=== PATIENT | female | born 1935 | race Caucasian/White ===

== ENCOUNTER → 2022-02-09 | Outpatient (CLI) | payer MEDICARE ==
[~2022-02-09] VITALS: Ht 152.4 cm; Wt 50.3 kg
[~2022-02-09] MED LIST: REGADENOSON 0.4 MG/5 ML PF SYG IVP SCH
== END | disposition home or self-care (01) ==
LOC: SHCH 07:43
PROVIDERS: ATTEND Internal Medicine Cardiovascular Disease
DX: R07.9 Chest pain, unspecified (principal); R93.1 Abnormal findings on diagnostic imaging of heart and coronary circulation
CPT/HCPCS: 78452; 96374; 93017; J2785; A9500 ×2

== ENCOUNTER → 2024-07-27 | Outpatient (CLI) | payer MEDICARE ==
--- NOTE | 2024-07-27 15:48 | HMCIMG ---
Exam Type: HAND 2+VWS LT LIMITED History: PAIN IN LEFT HAND Comparison: none Findings: The examination shows degenerative changes with narrowing of the interphalangeal joint spaces, with subchondral sclerosis. No fractures or dislocations are seen. There are no radiopaque foreign bodies. There are no areas of bone destruction. Impression: Osteoarthritis of the hand.
== END | disposition home or self-care (01) ==
LOC: RAH 12:52
PROVIDERS: ATTEND Internal Medicine
DX: M19.042 Primary osteoarthritis, left hand (principal); M79.642 Pain in left hand
CPT/HCPCS: 73120

== ENCOUNTER → 2024-08-31 | Outpatient (CLI) | payer MEDICARE ==
--- NOTE | 2024-08-31 11:40 | HMCIMG ---
Superficial ultrasound right neck Clinical Information: Swelling Comparison: None Findings: No fluid collections or masses are seen. Significantly, there is no evidence of hematoma. No increased fluid throughout the visualized tissue planes is identified. No lymphadenopathy is identified. Impression: No evidence of hematoma or fluid collections or other abnormalities.
== END | disposition home or self-care (01) ==
LOC: RAH 10:36
PROVIDERS: ATTEND Internal Medicine
DX: R22.1 Localized swelling, mass and lump, neck (principal); M54.2 Cervicalgia
CPT/HCPCS: 76536

== ENCOUNTER → 2025-06-23 | Outpatient (CLI) | payer MEDICARE ==
--- NOTE | 2025-06-24 00:11 | HMCIMG ---
EXAMINATION: MRI of the Left Hand without Contrast CLINICAL INDICATION: Other synovitis and tenosynovitis of the left hand. TECHNIQUE: Multiplanar, multisequence MRI of the left hand performed without intravenous contrast. COMPARISON: Prior left hand radiograph dated July 27, 2024. FINDINGS: Distal Radioulnar Joint (DRUJ): There is posterior subluxation of the ulna relative to the radius. A partial-thickness tear of the anterior capsule of the distal radioulnar joint is present with associated joint effusion. The DRUJ instability corresponds to Atzei Class 2 instability pattern (ulnar-sided TFCC injury with DRUJ subluxation). Triangular Fibrocartilage Complex (TFCC): There is a full-thickness tear of the foveal insertion of the TFCC disc proper, consistent with a David Class 1B lesion (traumatic ulnar-sided TFCC tear involving the foveal attachment), associated with DRUJ instability. Tendons and Tendon Sheaths: Tenosynovial fluid distention is present involving the extensor carpi radialis longus and extensor carpi radialis brevis tendon sheaths (series 4, image 3/42). Similar involvement of the flexor carpi radialis and flexor pollicis longus tendon sheaths is seen. Findings are consistent with Grade 2 tenosynovitis (moderate sheath fluid with synovial thickening, without tendon disruption). Index Finger: Diffuse bone marrow edema involves the metacarpal, proximal, middle, and terminal phalanges of the index finger, with associated subcutaneous edema. Flexor and extensor tendon slips are intact. The pattern is compatible with osteitis/reactive marrow edema, without features of fracture or tendon injury. Ring Finger: There is synovial thickening involving the metacarpophalangeal, proximal interphalangeal, and distal interphalangeal joints. Associated deformities include mild flexion deformity of the distal interphalangeal joint and extension deformity of the proximal interphalangeal joint, suggesting chronic inflammatory arthropathy with early deforming changes (Araya grade 23 appearance). Remaining Digits: The remainder of the fingers demonstrate normal bone marrow signal, preserved joint spaces, and intact tendons. Osseous Structures: No fracture, cortical destruction, or erosive changes are identified. Soft Tissues: Diffuse periarticular and subcutaneous edema is present without focal abscess or mass. IMPRESSION 1. 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 2. Full-thickness tear of the foveal insertion of the triangular fibrocartilage complex disc proper, consistent with a David Class 1B TFCC tear, explaining the associated DRUJ instability. 3. Moderate (Grade 2) tenosynovitis involving the extensor carpi radialis longus, extensor carpi radialis brevis, flexor carpi radialis, and flexor pollicis longus tendons. 4. Reactive bone marrow edema of the index finger involving the metacarpal and all phalanges with associated subcutaneous edema and intact tendons. Differential considerations include inflammatory arthropathy, early infectious process, or reactive osteitis secondary to adjacent synovitis. 5. Multijoint synovial thickening of the ring finger involving the metacarpophalangeal, proximal interphalangeal, and distal interphalangeal joints with early deforming features, most suggestive of chronic inflammatory arthropathy such as rheumatoid arthritis or seronegative inflammatory arthritis. Recommendations: Correlation with inflammatory markers and rheumatologic workup is recommended given the pattern of synovitis and marrow edema. Hand surgery or orthopedic consultation is advised for evaluation of the TFCC foveal tear and DRUJ instability. Follow-up MRI or targeted ultrasound may be considered to assess treatment response if symptoms persist or worsen. COMPARISON: No fracture is identified, similar to the prior left hand radiograph dated July 27, 2024. Ventral/posterior subluxation of the distal radioulnar joint and the full-thickness foveal TFCC tear are new findings since the prior examination. /Bush
== END | disposition home or self-care (01) ==
LOC: RAH 13:35
PROVIDERS: ATTEND Internal Medicine
DX: S63.651A Sprain of metacarpophalangeal joint of left index finger, initial encounter (principal); M65.842 Other synovitis and tenosynovitis, left hand; M25.342 Other instability, left hand; R60.0 Localized edema; M65.942 Unspecified synovitis and tenosynovitis, left hand; X58.XXXA Exposure to other specified factors, initial encounter; Y93.89 Activity, other specified; Y92.89 Other specified places as the place of occurrence of the external cause; Y99.8 Other external cause status
CPT/HCPCS: 73218